=== PATIENT | female | born 1965 | race Caucasian/White ===

== ENCOUNTER 2018-12-04 13:28 | Emergency (ER) | payer BC, SELFPAY ==
[2018-12-04 12:42] VITALS: BMI 28.4
[2018-12-04 13:28] VITALS: BP 122/79; PULSE 70; RESP 16; TEMP 36.8; O2SAT 98; BMI 29.2
--- NOTE | 2018-12-04 13:59 | ED.VIS.GEN ---
History of Present Illness <RockyMaurilio - Last Filed: 12/04/18 14:07> Detail of Chief Complaint: motuh swelling Informant: Patient Onset: Days - 4 days Context: Gradual Onset Timing: Continuous Current Severity: Moderate Maximum Severity: Moderate Worsened by: nothing Relieved by: nothing Associated Symptoms: tongue feels swollen Narrative: 53-year-old female who presents to the emergency department today because she feels as if her mouth and tongue are swollen. Patient the other day bought some teeth whitening gel and used it on her top and bottom teeth and since then is felt like her gums are swollen and then she felt like her tongue was swollen this morning. She has not had any lip or facial swelling. She has not had any difficulty breathing or swallowing or opening closing her mouth. She has not had a rash been lightheaded or dizzy or had any shortness of breath. She has used this gel in the past multiple times. She has never had any difficulty with it. She does not have any allergies to any substances or medications that she knows of. Prior similar symptoms: No Recent Illness/Hospitalization: No <Angel Poole - Last Filed: 12/04/18 14:10> Chief Complaint: Other, Pain/Inj Past Medical History <HidalgoMaurilio - Last Filed: 12/04/18 14:07> Prior records reviewed: Yes Surgical History: noncontributory Lives: With Family Smoking Status: Never smoker Alcohol: None Drugs: None <Angel Poole - Last Filed: 12/04/18 14:10> - Allergies and Home Meds Allergies/Adverse Reactions: Allergies Penicillins [PCN] Allergy (Verified 12/04/18 13:30) Rash prochlorperazine edisylate [From Compazine] Allergy (Verified 12/04/18 13:30) Other prochlorperazine maleate [From Compazine] Allergy (Verified 12/04/18 13:30) Other promethazine HCl [From Phenergan] Allergy (Verified 12/04/18 13:30) Other Primary Care Physician: Cindy García MD [Primary Care Provider] - Review of Systems All systems negative except as indicated General: Denies: Chills, Fever <Angel Poole - Last Filed: 12/04/18 14:10> Physical Exam Vital Signs/Narrative: Vital Signs Temp Pulse Resp BP Pulse Ox 12/04/18 13:28 98.3 F 70 16 122/79 H 98 <Maurilio Hidalgo - Last Filed: 12/04/18 14:07> Vital Signs/Narrative: Vital Signs Temp Pulse Resp BP Pulse Ox 12/04/18 13:28 98.3 F 70 16 122/79 H 98 <Angel Poole - Last Filed: 12/04/18 14:10> Diagnostic/Tx/Re-eval - Medical Decision Making Patient with discomfort with her gums and potentially mild swelling of her tongue after using teeth whitening gel. No trouble breathing or swallowing. HEENT exam there is minimal if any swelling or tongue. There is no thrush. There is no abscess ulcers or canker sores. Gums appear to be minimally inflamed. This does not appear to be infectious. Her dentition otherwise in good shape. Neck nontender no lymphadenopathy. Lungs are clear. Heart regular rhythm. Otherwise exam unremarkable. Patient be started on [id number] Gly-Oxide 4-5 times a day. Stop the teeth whitening gel. <Maurilio Hidalgo - Last Filed: 12/04/18 14:07> ED Disposition <Maurilio Hidalgo - Last Filed: 12/04/18 14:07> <Angel Poole - Last Filed: 12/04/18 14:10> - Plan for ED Patient: Disposition: Home or Assisted Living Diagnosis: Stomatitis Instructions: ED Stomatitis Ch Referrals: Cindy García MD [Primary Care Provider] -
[2018-12-04 14:19] VITALS: BP 114/83; PULSE 72; RESP 18
== END 2018-12-04 14:33 | disposition home or self-care (01) ==
LOC: ED 14:32
PROVIDERS: Emergency Provider Physician Assistant Medical; Family Provider Family Medicine; PCP Family Medicine
DX: K12.1 Other forms of stomatitis (principal)
CPT/HCPCS: 99282

== ENCOUNTER 2019-10-24 21:48 | Observation (INO) | payer BC, SELFPAY ==
[2019-10-24 21:49] VITALS: BP 136/89; PULSE 77; RESP 18; O2SAT 100
[2019-10-24 21:50] VITALS: BP 136/89; PULSE 79; RESP 18; TEMP 36.5; O2SAT 99
--- NOTE | 2019-10-24 21:56 | EKG12_ITS ---
Test Reason : CP Blood Pressure : / mmHG Vent. Rate : 075 BPM Atrial Rate : 075 BPM P-R Int : 128 ms QRS Dur : 092 ms QT Int : 416 ms P-R-T Axes : 034 018 034 degrees QTc Int : 464 ms Normal sinus rhythm Normal ECG Confirmed by SPENCER BENTON ([id number]), television news video editor KITA CASEY ([id number]) on 10/26/2019 3:02:49 PM Referred By: Pierre Escudero Confirmed By:SPENCER BENTON
--- NOTE | 2019-10-24 22:05 | ED.RN ---
NO OLD EKGS IN MUSE
--- NOTE | 2019-10-24 22:10 | RAD_ITS ---
STUDY: X-RAY CHEST REASON FOR EXAM: Female, 54 years old. CHEST PAIN X 15 MINUTES TECHNIQUE: Single AP portable view of the chest. COMPARISON: None. FINDINGS: The lungs are clear and expanded. There is no demonstrated pleural abnormality. Normal size heart. Normal mediastinum and ayana. Normal visualized pulmonary arteries. Normal visualized aortic arch and descending thoracic aorta. Normal visualized thoracic spine. Normal visualized ribs, clavicles, and shoulders. There is no demonstrated abnormality of the visualized soft tissue structures of the upper abdomen. RAD/Chest 1 View (Portable) IMPRESSION: Normal x-ray examination of the chest. Electronically Signed: Champ Jennings MD at 22:27 EDT , Service support ,
[2019-10-24 22:15] LABS: Absolute Lymphocyte Count 3.91 X10^3/uL (0.83-4.51); Absolute Neutrophil Count 3.4 X10^3/uL (2.0-7.7); Basophil# 0.04 X10^3/uL; Basophil% 0.5 % (0-1); Eosinophil# 0.15 X10^3/uL; Eosinophils% 1.8 % (0-5); Hemoglobin 14.8 g/dL (12.0-15.0); Lymphocyte # 3.91 X10^3/ul (4.0); Lymphocyte % 47.1 % (19-41); Mean Corp Hgb Conc 32.9 g/dL (32-36); Mean Corpuscular Hgb 29.4 pg (27.0-32.0); Mean Corpuscular Volume 89.5 fL (81-99); Monocyte# 0.81 X10^3/uL; Monocyte% 9.7 % (0-10); NRBC Flagged by Analyzer 0 % (0-5); Neutrophil # 3.37 X10^3/uL (2.7-7.7); Neutrophil % 40.5 % (47-70); Platelet Count 404 K/mm3 (150-450); RBC Distribution Width CV 13.3 % (11.6-14.6); RBC Distribution Width SD 43.8 fl (35.1-43.9); Red Blood Count 5.03 M/mm3 (4.2-5.4); White Blood Count 8.3 K/mm3 (4.4-11.0)
[2019-10-24] MEDS: Aspirin 81 MG TAB.CHEW 324 MG PO (22:16)
[2019-10-24 22:31] LABS: Anion Gap 7 (5-15); BUN 15 mg/dL (7-18); BUN/Creat Ratio 17.9 RATIO (10-20); Calcium,Total 8.8 mg/dL (8.5-10.1); Chloride 111 mmol/L (98-107); Creatinine, Serum 0.84 mg/dL (0.55-1.02); EST Glomerular Filtration Rate 76 mL/min (>60); Est Glom Filt Rate - Afr Amer 92 mL/min (>60); Estimated Creatinine Clearance 75.32 ml/min; Glucose 73 mg/dL (74-106); Potassium 3.2 mmol/L (3.5-5.1); Sodium Level 140 mmol/L (136-145)
--- NOTE | 2019-10-24 22:46 | ED.VIS.GEN ---
History of Present Illness Chief Complaint: Chest Pain Informant: Patient Onset: Today Context: Gradual Onset Current Severity: Resolved Maximum Severity: Moderate Narrative: Patient presents with chest pain. She describes as a tight squeezing sensation of the midsternal region. Patient states that she was lying down watching television when pain hit her rather abruptly. Pain was bad enough she states she was laying on the kitchen floor. She did have some shortness of breath but related that to pain. She denies pain radiation to the jaw, arm, or back. drove her to the emergency room and since arrival here pain has slowly diminished to the point where she is currently pain-free. Patient does report a history of reflux disease but states this was nothing like her typical reflux. She does report having frequent palpitations over the last 6 months or so. She denies personal history of cardiac disease. - Past Medical History (1) GERD (gastroesophageal reflux disease) Status: Chronic Past Medical History - Allergies and Home Meds Allergies/Adverse Reactions: Allergies Penicillins [PCN] Allergy (Verified 10/24/19 21:49) Rash prochlorperazine edisylate [From Compazine] Allergy (Verified 10/24/19 21:49) Other prochlorperazine maleate [From Compazine] Allergy (Verified 10/24/19 21:49) Other promethazine HCl [From Phenergan] Allergy (Verified 10/24/19 21:49) Other Primary Care Physician: Cindy García MD [Primary Care Provider] - Prior records reviewed: Yes Surgical History: noncontributory Lives: Spouse/ Significant Other Smoking Status: Never smoker Review of Systems General: Denies: Chills, Fever Eyes: Denies: Visual changes - bilaterally ENT: Denies: Bilateral ear pain Cardiovascular: Reports: Chest pain, Palpitations Respiratory: Reports: Dyspnea. Denies: Cough Gastrointestinal: Denies: Abdominal pain, Nausea, Vomiting, Diarrhea Genitourinary: Denies: Dysuria Musculoskeletal: Denies: Swelling, Extremity Pain Neurological: Denies: Headache Psych: Denies: Depression Hematologic: Denies: Easy bruising, Easy bleeding Allergy: Denies: Uticaria Physical Exam Vital Signs/Narrative: Vital Signs Temp Pulse Resp BP Pulse Ox 10/24/19 21:50 97.7 F L 79 18 136/89 H 99 10/24/19 21:49 77 18 136/89 H 100 Inital Vital Signs reviewed: Yes General: Well nourished, Well developed Head: Normocephalic ENT: Moist mucous membranes Neck: Supple Cardiovascular: Regular rate, Regular rhythm Respiratory: No distress, CTA bilaterally, Chest nontender Abdomen: Soft, Nontender Extremities: Nontender Skin: Normal color, No rash Neurological: Alert, Oriented x3 Psychological: Normal affect Diagnostic/Tx/Re-eval Impressions Chest X-Ray 10/24/19 22:10 IMPRESSION: Normal x-ray examination of the chest. Electronically Signed: Champ Jennings MD at 22:27 EDT , Service support , 10/24/19 22:10 Chest 1 View (Portable) [RAD] Stat Laboratory Results 10/24/19 10/24/19 22:00 22:00 WBC 8.3 RBC 5.03 Hgb 14.8 Hct 45.0 MCV 89.5 MCH 29.4 MCHC 32.9 RDW Std Deviation 43.8 RDW Coeff of Anjana 13.3 Plt Count 404 MPV 9.0 Immature Gran % (Auto) 0.400 Neut % (Auto) 40.5 L Lymph % (Auto) 47.1 H [place] % (Auto) 9.7 Eos % (Auto) 1.8 Baso % (Auto) 0.5 Absolute Neuts (auto) 3.4 Absolute Lymphs (auto) 3.91 Nucleated RBC % 0 Sodium 140 Potassium 3.2 L Chloride 111 H Carbon Dioxide 22.0 Anion Gap 7 BUN 15 Creatinine 0.84 Estim Creat Clear Calc 75.32 Est GFR (MDRD) Af Amer 92 Est GFR (MDRD) Non-Af 76 BUN/Creatinine Ratio 17.9 Glucose 73 L Calcium 8.8 Troponin I < 0.015 - EKG Initial EKG Interpretation: Sinus Rhythm - Sinus at 75 with no acute ischemia. - Medical Decision Making Patient was given aspirin on arrival here. The time of my evaluation she reports being pain-free. Patient does report rather significant pain and states it was nothing like her prior reflux disease. Initial blood work is unremarkable, however was drawn probably within 1 hour of onset of symptoms. At this time I will speak with hospitalist regarding admission for cycling of cardiac enzymes. ED Disposition - Plan for ED Patient: Disposition: Acute Care Hospital [facility] Diagnosis: Chest pain Referrals: Cindy García MD [Primary Care Provider] -
[2019-10-24 22:59] VITALS: BP 115/83; PULSE 76; RESP 16; O2SAT 95
[2019-10-24 23:06] VITALS: BP 110/73; PULSE 77; RESP 19; TEMP 36.5; O2SAT 95
[2019-10-24 23:44] VITALS: BMI 29.9
[2019-10-24 23:45] VITALS: BP 112/63; PULSE 71; RESP 16; TEMP 36.5; O2SAT 96
--- NOTE | 2019-10-24 23:49 | HP.PCM_ITS ---
Problem List (1) Chest pain Status: Acute Qualifiers: Chest pain type: precordial pain Qualified Code(s): R07.2 - Precordial pain History of Present Illness Date of Admission: 10/24/19 Chief Complaint: Chest pain The patient is a 54 year old F who was seen in the emergency room at [facility] with a chief complaint of precordial chest pain which started approximately 9:45 PM tonight, she described the chest pain as being tight and squeezing in nature, it did not radiate into her neck back or arm. Patient did have some pain across her upper abdomen, she denies any diaphoresis or shortness of breath. Patient states that the chest discomfort occurred when she was lying on the couch after eating some tacos chips and drinking a shin. The chest discomfort lasted approximately half an hour and resolved. Work-up in the emergency room included troponin which was unremarkable, chest x-ray showed no abnormality, EKG showed normal sinus rhythm without evidence of ischemia. Potassium was slightly low at 3.2. Patient will be placed in observation status for chest pain, cardiac enzymes will be cycled and if these remain negative patient will undergo an exercise nuclear stress test tomorrow. I explained her course of medical treatment in the hospital and explained that if her stress test was positive she would likely undergo a cardiac catheterization. Past Medical History Past Medical History (Chronic Problems): Chronic Problems (Last Updated 12/04/18 @ 12:53 by Crystal Verma) GERD (gastroesophageal reflux disease) (Chronic) Medical History: Medical History (Last Updated 12/04/18 @ 12:53 by Crystal Verma) Hemorrhoids K64.9 history of trigger thumb surgery Allergies Penicillins [PCN] Allergy (Verified 10/24/19 21:49) Rash prochlorperazine edisylate [From Compazine] Allergy (Verified 10/24/19 21:49) Other prochlorperazine maleate [From Compazine] Allergy (Verified 10/24/19 21:49) Other promethazine HCl [From Phenergan] Allergy (Verified 10/24/19 21:49) Other Home Medications: Ambulatory Orders Medication Instructions Recorded fluoxetine 10 mg tablet 10 mg PO DAILY 12/04/18 Surgical History: Surgical History (Last Updated 12/04/18 @ 12:53 by Crystal Verma) History of Z98.891 History of cholecystectomy Z90.49 Surgical History: cholecystectomy, - - , dental procedure Psychiatric History: No pertinent psych hx MEDICATION COORDINATOR History: No pertinent MEDICATION COORDINATOR history Lives: Spouse/ Significant Other Smoking Status: Never smoker Tobacco Use: Non-smoker Alcohol: Occasional Drugs: None - *Family History Maternal History Items: No pertinent history Paternal History Items: No pertinent history Review of Systems Constitutional: Denies: Anorexia, Chills, Fever, Night Sweats, Malaise, Weakness, Weight Change, Fatigue Eyes: Denies: Cataracts, Conjunctivae Inflammation, Double vision, Drainage HEENT: Denies: Difficulty Swallowing, Dysphasia, Ear Pain, Eye Pain, Hearing Changes, Nasal bleeding, Nasal Congestion, Post Nasal Drip Cardiovascular: Reports: Chest Pain, Chest Pressure, Chest Tightness. Denies: Claudication, Edema, Heaviness, Light Headedness, Orthopnea, Palpitations, Paroxysmal Noc. Dyspnea Respiratory: Denies: Cough, Hemoptysis, Pleuritic Pain, Shortness of Breath, Shortness of breath at rest, Shortness of breath upon exertion, Sputum production, Wheezing Gastrointestinal: Reports: Abdominal Pain - Patient complained of pain across her abdomen and while having chest discomfort. Denies: Constipation, Diarrhea, Hematemesis, Hematochezia, Nausea, Melena, Vomiting Genitourinary: Denies: Dysuria, Frequency, Hematuria, Hesitancy, Incontinence, Nocturia, Retention, Urgency Gynecological: Denies: Breast symptoms Musculoskeletal: Denies: Back Pain, Foot Pain, Hand Pain, Joint Pain, Joint stiffness, Joint swelling, Joint Tenderness, Leg Pain Skin: Denies: Dryness, Pruritis, Rash Neurological: Denies: Blurred vision, Double vision, Slurred speech, Difficulty swallowing, Focal weakness, Headaches, Incoordination, Numbness, Tingling Psychiatric: Denies: Anxiety, Depression, Homicidal Ideations, Suicidal Ideations Endocrine: Denies: Change in Body Habitus, Heat/ Cold Intolerance, Polydipsia, Polyuria, Hx of Irradiation Hematologic/ Lymphatic: Denies: Adenopathy, Anemia, Easy Bruising, Easy Bleeding, Petechiae, Purpura VTE Information - Inpt Only VTE Present on Admission: No VTE Mechan Device Prophylaxis: None VTE Pharm Prophylaxis ordered?: No Reason prophylaxis not ordered:: Treatment Not Indicated Patient Problems: Active and Suspected Problems (Last Updated 12/04/18 @ 12:53 by Crystal Verma) Chest pain (Acute) - Physical Exam Vitals/I&O's: Vital Signs Temp Pulse Resp BP Pulse Ox 97.7 F L 71 16 112/63 96 10/24/19 23:45 10/24/19 23:45 10/24/19 23:45 10/24/19 23:45 10/24/19 23:45 Oxygen Delivery Method Room Air Weight: 87 kg Body Mass Index (BMI) 30.0 General: Alert, Oriented x3, Cooperative, No apparent distress, Well developed, Well nourished HEENT: Atraumatic, PERRLA, EOMI, Normocephalic Oral: Moist Mucosa Neck: Supple, No JVD, Negative Carotid Bruits, No Nuchal Rigidity, Trachea Midline, Thyroid Normal Size and Texture Lungs: Clear to auscultation, Normal air movement, No rhonchi, No wheeze, No rales Cardiovascular: Regular rate, Regular Rhythm, Normal S1, Normal S2, No murmurs, PMI Normal, No rub noted, No Gallop Abdomen: Bowel Sounds Present, Soft, Non Tender, Non-Distended, No hernias noted Extremities: No clubbing, No cyanosis, No edema, Capillary Refill Less than 3 Seconds Skin: No rashes, No breakdown Musculoskeletal: No Tenderness to Palpation of Joints or Extremities Neurological: Cranial nerves II-XII grossly intact, Neuro grossly intact, Sensory exam intact to light touch and pain, Coordination normal Psych/Mental Status: Normal Affect, Appropriate, Alert and oriented to time, place, person, mood and affect Laboratory Results 10/24/19 22:00: WBC 8.3, RBC 5.03, Hgb 14.8, Hct 45.0, MCV 89.5, MCH 29.4, MCHC 32.9, RDW Std Deviation 43.8, RDW Coeff of Anjana 13.3, Plt Count 404, MPV 9.0, Immature Gran % (Auto) 0.400, Neut % (Auto) 40.5 L, Lymph % (Auto) 47.1 H, Real % (Auto) 9.7, Eos % (Auto) 1.8, Baso % (Auto) 0.5, Absolute Neuts (auto) 3.4, Absolute Lymphs (auto) 3.91, Nucleated RBC % 0 10/24/19 22:00: Sodium 140, Potassium 3.2 L, Chloride 111 H, Carbon Dioxide 22.0, Anion Gap 7, BUN 15, Creatinine 0.84, Estim Creat Clear Calc 75.32, Est GFR (MDRD) Af Amer 92, Est GFR (MDRD) Non-Af 76, BUN/Creatinine Ratio 17.9, Glucose 73 L, Calcium 8.8, Troponin I < 0.015 Current Medications Sodium Chloride () 250 mls @ 15 mls/hr IV .[id number] PRN PRN Reason: Saline Flush Sodium Chloride () 250 mls @ 15 mls/hr IV .[id number] PRN PRN Reason: Additional IVPB Infusion Sodium Chloride () 10 - 40 ml IV UD PRN PRN Reason: SALINE FLUSH Assessment/Plan All Active Problems (Last Updated 12/04/18 @ 12:53 by Crystal Verma) Chest pain (Acute) #1 chest pain-etiology unclear, patient will be placed in observation status on PCU, she will be monitored, cardiac enzymes will be cycled if these remain negative patient will undergo an exercise stress test tomorrow #2 hypokalemia-etiology unclear, oral potassium will be given OBSV E&M: [id number] Initial observation care L3
[2019-10-24 23:52] VITALS: PULSE 88
--- NOTE | 2019-10-25 00:45 | EKG12_ITS ---
Test Reason : ADM EKG Blood Pressure : / mmHG Vent. Rate : 070 BPM Atrial Rate : 070 BPM P-R Int : 122 ms QRS Dur : 092 ms QT Int : 428 ms P-R-T Axes : 042 047 034 degrees QTc Int : 462 ms Normal sinus rhythm Normal ECG No previous ECGs available Confirmed by SPENCER BENTON ([id number]), editor book KITA CASEY ([id number]) on 10/26/2019 3:17:42 PM Referred By: Pierre Escudero Confirmed By:SPENCER BENTON
[2019-10-25 02:59] VITALS: PULSE 80
[2019-10-25 05:45] VITALS: BP 107/67; PULSE 74; RESP 16; TEMP 36.6; O2SAT 96
[2019-10-25] MEDS: 0.9% Saline Lock 10 ML Syringe IV (05:53)
--- NOTE | 2019-10-25 05:55 | EKG12_ITS ---
Test Reason : AM EKG Blood Pressure : / mmHG Vent. Rate : 072 BPM Atrial Rate : 072 BPM P-R Int : 124 ms QRS Dur : 088 ms QT Int : 420 ms P-R-T Axes : 039 033 034 degrees QTc Int : 459 ms Normal sinus rhythm Normal ECG When compared with ECG of 25-OCT-2019 00:27, MANUAL COMPARISON REQUIRED, DATA IS UNCONFIRMED Confirmed by SPENCER BENTON ([id number]), medical editor KITA CASEY ([id number]) on 10/26/2019 3:17:52 PM Referred By: Pierre Escudero Confirmed By:SPENCER BENTON
[2019-10-25 07:43] VITALS: PULSE 83
[2019-10-25 07:50] LABS: Anion Gap 7 (5-15); BUN 18 mg/dL (7-18); BUN/Creat Ratio 20.7 RATIO (10-20); Calcium,Total 8.6 mg/dL (8.5-10.1); Chloride 110 mmol/L (98-107); Creatinine, Serum 0.87 mg/dL (0.55-1.02); EST Glomerular Filtration Rate 73 mL/min (>60); Est Glom Filt Rate - Afr Amer 88 mL/min (>60); Estimated Creatinine Clearance 72.72 ml/min; Glucose 102 mg/dL (74-106); Potassium 4.1 mmol/L (3.5-5.1); Sodium Level 141 mmol/L (136-145)
[2019-10-25 08:23] VITALS: BP 121/76; PULSE 75; RESP 18; TEMP 36.7; O2SAT 96
--- NOTE | 2019-10-25 12:58 | STRESSREP_ITS ---
Stress Test Report Exercise myocardial perfusion stress test. 54-year-old lady with a history of chest pain. Stress protocol: Resting EKG demonstrates normal sinus rhythm with a rate of 71 bpm normal intervals are noted resting blood pressures 110/80 mmHg. The patient exercised according to regular Brain protocol for a total duration of 7 minutes. The m aximum heart rate attained was 157 bpm which was 94% of maximum. Heart rate the maximum workload was 8.5 metabolic equivalents. At rest there were no ST or T wave changes noted to suggest ischemia at peak exercise upsloping ST changes only were noted within.did not note any ischemia. No clinical angina was noted. The test was terminated due to leg fatigue, dyspnea and target heart rate being achieved. Myocardial perfusion protocol. 12.0 mCi of technetium 99m sestamibi was injected at rest. The patient exercised according to regular Brain protocol for a total duration of 7 minutes at peak exercise 36.0 mCi of technetium 99m sestamibi was injected stress images were obtained stress and rest images were reconstructed in comparing the short axis vertical long horizontal long axis. Gated images were also obtained per Perfusion SPECT analysis: Review of the stress images demonstrate normal uptake of tracer noted in all areas of the myocardium. The resting images similar demonstrate normal uptake of tracer noted in all areas of the myocardium. No areas of reversibility are noted suggest ischemia no previous infarct is noted. Gated SPECT analysis: The gated ejection fraction is noted to be 74%. Conclusion: Normal exercise myocardial perfusion stress test at a moderate workload. Preserved ejection fraction.
--- NOTE | 2019-10-25 13:51 | DS.PCM_ITS ---
<Noah Messer - Last Filed: 10/25/19 13:51> Discharge Date and Diagnosis - Problem List Patient Problems: Active and Suspected Problems (Last Updated 12/04/18 @ 12:53 by Crystal Verma) Chest pain (Acute) Date of Admission: 10/24/19 Date of Discharge: 10/25/19 - Primary Discharge Diagnosis Active and Suspected Problems (Last Updated 12/04/18 @ 12:53 by Crystal Verma) Chest pain (Acute) - musculoskeletal Anx/depression - Secondary Discharge Diagnosis Chronic Problems (Last Updated 12/04/18 @ 12:53 by Crystal Verma) GERD (gastroesophageal reflux disease) (Chronic) Hospital Course and Treatment Imaging Results: 10/25/19 05:55 Nuclear Stress Test - Treadmil [NM] AM (NON MEDS) Conclusion: Normal exercise myocardial perfusion stress test at a moderate workload. Preserved ejection fraction. RAD/Chest 1 View (Portable) IMPRESSION: Normal x-ray examination of the chest. Operations: None Procedures: Stress test Summary of Care Provided: Hospital Course: The patient is a 54 year old F with pmhx of anx/depression who presented to the ER with c/o chest pain. This began at about 2145 the day of presentation. It was a left sided squeezing pain, nonradiating with some epigastric pain as well. It occurred while laying on the cough after eating tacos and drinking a shin. It spontaneously resolved 1/2 hour later. In the ER EKG was negative, CXR was negative, trop was negative. She was admitted for chest pain workup. No events on tele overnight. Troponin negative x3. Treadmill stress the following day was negative. She will need to follow up with her PCP in 1-2 weeks. She was dischar [facility] home in stable condition. This patient was seen by Noah Messer PA-C under the supervision of Dr. El. [] Patient Problems: Active and Suspected Problems (Last Updated 12/04/18 @ 12:53 by Crystal Verma) Chest pain (Acute) - Physical Exam Vitals/I&O's: Vital Signs Temp Pulse Resp BP Pulse Ox 98.0 F 75 18 121/76 H 96 10/25/19 08:23 10/25/19 08:23 10/25/19 08:23 10/25/19 08:23 10/25/19 08:23 Oxygen Delivery Method Room Air Weight: 191 lb 5.78 oz Body Mass Index (BMI) 29.9 Intake and Output for Last 24 Hours 10/23/19 10/24/19 10/25/19 23:59 23:59 23:59 Intake Total 100 / 100 300 / 300 Balance 100 / 100 300 / 300 General: Alert, Oriented x3, Cooperative HEENT: Atraumatic, PERRLA, EOMI, Normocephalic Neck: Supple, No JVD, Negative Carotid Bruits Lungs: Clear to auscultation, Normal air movement Cardiovascular: Regular rate, No murmurs Abdomen: Bowel Sounds Present, Soft, Non Tender Extremities: No edema, Capillary Refill Less than 3 Seconds Skin: No rashes, No breakdown Musculoskeletal: No Tenderness to Palpation of Joints or Extremities Neurological: Cranial nerves II-XII grossly intact Psych/Mental Status: Normal Affect, Appropriate, Alert and oriented to time, place, person, mood and affect Laboratory Results 10/24/19 22:00: WBC 8.3, RBC 5.03, Hgb 14.8, Hct 45.0, MCV 89.5, MCH 29.4, MCHC 32.9, RDW Std Deviation 43.8, RDW Coeff of Anjana 13.3, Plt Count 404, MPV 9.0, Immature Gran % (Auto) 0.400, Neut % (Auto) 40.5 L, Lymph % (Auto) 47.1 H, Johnston % (Auto) 9.7, Eos % (Auto) 1.8, Baso % (Auto) 0.5, Absolute Neuts (auto) 3.4, Absolute Lymphs (auto) 3.91, Nucleated RBC % 0 10/24/19 22:00: Sodium 140, Potassium 3.2 L, Chloride 111 H, Carbon Dioxide 22.0, Anion Gap 7, BUN 15, Creatinine 0.84, Estim Creat Clear Calc 75.32, Est GFR (MDRD) Af Amer 92, Est GFR (MDRD) Non-Af 76, BUN/Creatinine Ratio 17.9, Glucose 73 L, Calcium 8.8, Troponin I < 0.015 10/25/19 00:38: Troponin I < 0.015 10/25/19 04:22: Troponin I < 0.015 10/25/19 04:22: Sodium 141, Potassium 4.1, Chloride 110 H, Carbon Dioxide 24.0, Anion Gap 7, BUN 18, Creatinine 0.87, Estim Creat Clear Calc 72.72, Est GFR (MDRD) Af Amer 88, Est GFR (MDRD) Non-Af 73, BUN/Creatinine Ratio 20.7 H, Glucose 102, Calcium 8.6 Current Medications Sodium Chloride () 250 mls @ 15 mls/hr IV .[id number] PRN PRN Reason: Saline Flush Sodium Chloride () 250 mls @ 15 mls/hr IV .[id number] PRN PRN Reason: Additional IVPB Infusion Morphine Sulfate () 2 mg IV Q3H PRN PRN PRN Reason: Pain Score 6-10/10 Ondansetron HCl (Zofran) 4 mg IV Q8H PRN PRN PRN Reason: NAUSEA/VOMITING Sodium Chloride () 10 - 40 ml IV UD PRN PRN Reason: SALINE FLUSH Last Admin: 10/25/19 05:53 Dose: 10 ml Documented by: Temazepam (Restoril) 15 mg PO QHS PRN PRN PRN Reason: INSOMNIA Discharge Diet: No Restrictions Discharge Activity: Return to Normal Activity Home Medications: Medications to take at Discharge fluoxetine 10 mg tablet 10 mg PO DAILY 12/04/18 Primary Care Physician: Cindy García MD [Primary Care Provider] - Please follow up with your Primary Care Physician in: 1-2 weeks Disposition: Home Minutes spent on discharge:: 35 Patient Condition:: Stable Medical Necessity - Tobacco Use Smoking Status: Never smoker Tobacco Use: Non-smoker Meaningful Use Info Meaningful Use Diagnoses (Choose all that apply): None applicable <Radha El - Last Filed: 10/25/19 14:09> Discharge Date and Diagnosis - Primary Discharge Diagnosis Active and Suspected Problems (Last Updated 12/04/18 @ 12:53 by Crystal Verma) Chest pain (Acute) - Secondary Discharge Diagnosis Chronic Problems (Last Updated 12/04/18 @ 12:53 by Crystal Verma) GERD (gastroesophageal reflux disease) (Chronic) Hospital Course and Treatment Imaging Results: 10/25/19 05:55 Nuclear Stress Test - Treadmil [NM] AM (NON MEDS) Summary of Care Provided: Patient seen by Noah Messer PA-C under my supervision The patient is a 54 year old F admitted through the ED with a complaint of chest pain. Was a left-sided squeezing chest pain with no aggravating or relieving factors. Troponins x3 were negative and EKG showed no acute ST changes. Chest x-ray showed no acute cardiopulmonary process. She was admitted to be managed for chest pain to rule out ACS. He had a treadmill stress test on 10/25/2019 which was negative for any evidence of ischemia. Patient remained stable and chest pain did not recur. She was discharged home on 10/25/2019 and is to follow- up with her primary care doctor within 1 to 2 weeks. Patient seen and examined prior to discharge. She had no complaints. Review of symptoms otherwise negative. Labs and vitals reviewed. Home medication reviewed and reconciled. o/e: Vital Signs Temp Pulse Resp BP Pulse Ox 98.0 F 75 18 121/76 H 96 10/25/19 08:23 10/25/19 08:23 10/25/19 08:23 10/25/19 08:23 10/25/19 08:23 [] General: Alert, Oriented x3, Cooperative, No apparent distress HEENT: Atraumatic, PERRLA, EOMI, Normocephalic Oral: Moist Mucosa Neck: Supple, No JVD, Negative Carotid Bruits, Lungs: Clear to auscultation, Normal air movement, No rhonchi, No wheeze, No rales Cardiovascular: Regular rate, Regular Rhythm, Normal S1, Normal S2, No murmurs, Abdomen: Bowel Sounds Present, Soft, Non Tender, Non-Distended, No hernias noted Extremities: No clubbing, No cyanosis, No edema, Capillary Refill Less than 3 Se conds Skin: No rashes, No breakdown Musculoskeletal: No Tenderness to Palpation of Joints or Extremities Neurological: Cranial nerves II-XII grossly intact, Neuro grossly intact Psych/Mental Status: Normal Affect, Appropriate, Alert and oriented to time, place, person, mood and affect Plan is for discharge home today. Rest as per Noah Messer PA-C's notes which I have reviewed and endorsed. - Physical Exam Vitals/I&O's: Vital Signs Temp Pulse Resp BP Pulse Ox 98.0 F 75 18 121/76 H 96 10/25/19 08:23 10/25/19 08:23 10/25/19 08:23 10/25/19 08:23 10/25/19 08:23 Oxygen Delivery Method Room Air Weight: 191 lb 5.78 oz Body Mass Index (BMI) 29.9 Intake and Output for Last 24 Hours 10/23/19 10/24/19 10/25/19 23:59 23:59 23:59 Intake Total 100 / 100 300 / 300 Balance 100 / 100 300 / 300 Laboratory Results 10/24/19 22:00: WBC 8.3, RBC 5.03, Hgb 14.8, Hct 45.0, MCV 89.5, MCH 29.4, MCHC 32.9, RDW Std Deviation 43.8, RDW Coeff of Anjana 13.3, Plt Count 404, MPV 9.0, Immature Gran % (Auto) 0.400, Neut % (Auto) 40.5 L, Lymph % (Auto) 47.1 H, Johnston % (Auto) 9.7, Eos % (Auto) 1.8, Baso % (Auto) 0.5, Absolute Neuts (auto) 3.4, Absolute Lymphs (auto) 3.91, Nucleated RBC % 0 10/24/19 22:00: Sodium 140, Potassium 3.2 L, Chloride 111 H, Carbon Dioxide 22.0, Anion Gap 7, BUN 15, Creatinine 0.84, Estim Creat Clear Calc 75.32, Est GFR (MDRD) Af Amer 92, Est GFR (MDRD) Non-Af 76, BUN/Creatinine Ratio 17.9, Glucose 73 L, Calcium 8.8, Troponin I < 0.015 10/25/19 00:38: Troponin I < 0.015 10/25/19 04:22: Troponin I < 0.015 10/25/19 04:22: Sodium 141, Potassium 4.1, Chloride 110 H, Carbon Dioxide 24.0, Anion Gap 7, BUN 18, Creatinine 0.87, Estim Creat Clear Calc 72.72, Est GFR (MDRD) Af Amer 88, Est GFR (MDRD) Non-Af 73, BUN/Creatinine Ratio 20.7 H, Glucose 102, Calcium 8.6 Current Medications Sodium Chloride () 250 mls @ 15 mls/hr IV .[id number] PRN PRN Reason: Saline Flush Sodium Chloride () 250 mls @ 15 mls/hr IV .[id number] PRN PRN Reason: Additional IVPB Infusion Morphine Sulfate () 2 mg IV Q3H PRN PRN PRN Reason: Pain Score 6-10/10 Ondansetron HCl (Zofran) 4 mg IV Q8H PRN PRN PRN Reason: NAUSEA/VOMITING Sodium Chloride () 10 - 40 ml IV UD PRN PRN Reason: SALINE FLUSH Last Admin: 10/25/19 05:53 Dose: 10 ml Documented by: Temazepam (Restoril) 15 mg PO QHS PRN PRN PRN Reason: INSOMNIA Inpatient E&M: [id number] Disch Hosp
--- NOTE | 2019-10-25 13:51 | DCINST_ITS ---
- Discharge Diagnoses Current Active Problems: Current Active and Chronic Problems (Last Updated 12/04/18 @ 12:53 by Crystal Verma) GERD (gastroesophageal reflux disease) (Chronic) Chest pain (Acute) You will use the following diet at home:: No restrictions Your food should be the consistency of: Regular Your liquids should be the consistency of: Regular/Thin Discharge Activity: Return to Normal Activity Allergies/Adverse Reactions: Allergies Penicillins [PCN] Allergy (Verified 10/24/19 21:49) Rash prochlorperazine edisylate [From Compazine] Allergy (Verified 10/24/19 21:49) Other prochlorperazine maleate [From Compazine] Allergy (Verified 10/24/19 21:49) Other promethazine HCl [From Phenergan] Allergy (Verified 10/24/19 21:49) Other Medications to take at Discharge fluoxetine 10 mg tablet 10 mg PO DAILY 12/04/18 Primary Care Physician: Cindy García MD [Primary Care Provider] - Please follow up with your Primary Care Physician in: 1-2 weeks Test Results: Test results from this visit will be discussed in further detail at your follow- up appointment, if applicable. Proposed Discharge Date: 10/25/19
== END 2019-10-25 13:51 | disposition home or self-care (01) ==
LOC: ED 22:49 → PCU 10-25 00:43
PROVIDERS: Emergency Medicine; Admitting Provider Internal Medicine; Emergency Provider Emergency Medicine; PCP Family Medicine; Referring Provider Internal Medicine; Visit Provider Student in an Organized Health Care Education/Training Program
DX: R07.89 Other chest pain (principal); K21.9 Gastro-esophageal reflux disease without esophagitis; Z79.899 Other long term (current) drug therapy; E87.6 Hypokalemia; F41.9 Anxiety disorder, unspecified; F32.9 Major depressive disorder, single episode, unspecified
CPT/HCPCS: 36415; 71045; 78452; 80048; 84484; 85025; 93005; 93017; 99218; 99285; A9500; A4216; G0378

== ENCOUNTER → 2019-12-11 12:42 | Outpatient (CLI) | payer BC, SELFPAY ==
[2019-11-23 13:29] VITALS: BMI 28.8
--- NOTE | 2019-12-11 12:45 | ECHOD_ITS ---
Reason For Study: Palps Procedure This was a 2D Doppler, Color Flow transthoracic echocardiogram. The exam was of adequate technical quality. Exam performed in department. Left Ventricle Normal LV size. Left ventricular systolic function is normal. The estimated ejection fraction is 65 %. Transmitral doppler flow suggestive of impaired relaxation of left ventricle. No regional wall motion abnormalities noted. Right Ventricle Normal RV size. Normal systolic function. Atria Normal left atrium. Normal right atrium. No doppler evidence for ASD. Mitral Valve There is no mitral annular calcification. Normal mitral valve. Trivial mitral valve insufficiency. Tricuspid Valve Normal tricuspid valve. Trivial tricuspid valve insufficiency. Right ventricular systolic pressure estimated to be 22 mmHg. Aortic Valve 2D echocardiographic images obtained appear c/w with a bicuspid aortic valve with mild focal thickening of a fused raphae. Mild (1+) aortic valve insufficiency. Pulmonic Valve The pulmonic valve is not well visualized. Great Vessels Mildly dilated aortic root. Pericardium/Pleural No pericardial effusion. MMode/2D Measurements & Calculations LVIDd: 4.1 cm IVSd: 0.77 cm LVOT diam: 2.2 cm LVIDs: 2.4 cm LVPWd: 0.87 cm LVOT area: 3.7 cm2 RVDd: 3.2 cm FS: 42.0 % Ao root diam: 4.0 cm LAV(MOD-bp): 33.8 ml LA A4 area: 14.9 cm2 LAV(MOD-bp) Indexed: 17.3 ml/m2 LAV(MOD-sp2): 32.2 ml LAV(MOD-sp4): 35.3 ml LA dimension(2D): 3.2 cm RA A4 area: 15.4 cm2 Doppler Measurements & Calculations MV E max eddie: 78.2 cm/sec Lat Peak E' Eddie: 9.8 cm/sec Med Peak E' Eddie: 6.7 cm/sec MV A max eddie: 91.3 cm/sec E/E' lat: 8.0 E/E' med: 11.7 MV E/A: 0.86 Ao V2 max: 154.7 cm/sec AI max eddie: 350.0 cm/sec LV V1 max: 118.6 cm/sec Ao max P.6 mmHg AI max P.1 mmHg LV V1 max P.6 mmHg Ao V2 mean: 104.5 cm/sec AI dec slope: 142.6 cm/sec2 LV V1 mean P.9 mmHg Ao mean P.8 mmHg AI P1/2t: 719.0 msec LV V1 mean: 80.9 cm/sec Ao V2 VTI: 31.2 cm LV V1 VTI: 25.1 cm NORA(I,D): 3.0 cm2 NORA(V,D): 2.8 cm2 SV(LVOT): 93.1 ml PA V2 max: 72.4 cm/sec TR max eddie: 215.1 cm/sec TR max P.5 mmHg Interpretation Summary Left ventricular systolic function is normal. The estimated ejection fraction is 65 %. Trivial mitral valve insufficiency. Trivial tricuspid valve insufficiency. 2D echocardiographic images obtained appear c/w with a bicuspid aortic valve with mild focal thickening of a fused raphae. Mild (1+) aortic valve insufficiency. Mildly dilated aortic root. Right ventricular systolic pressure estimated to be 22 mmHg. Transmitral doppler flow suggestive of impaired relaxation of left ventricle Ordering Physician: Gabino Bob Referring Physician: Cindy García M.D. Performed By: Rachelle Pedraza RDCS
== END ==
PROVIDERS: PCP Family Medicine; Referring Provider Internal Medicine Cardiovascular Disease; Visit Provider Internal Medicine Cardiovascular Disease
DX: R07.2 Precordial pain (principal); R01.1 Cardiac murmur, unspecified; R00.2 Palpitations
CPT/HCPCS: 93225; 93226; 93306

== ENCOUNTER → 2019-12-19 | Outpatient (CLI) | payer BC, SELFPAY ==
[2019-11-23 13:29] VITALS: BMI 28.8
--- NOTE | 2019-12-19 14:51 | CT_ITS ---
STUDY: CT CHEST WITH CONTRAST REASON FOR EXAM: Female, 54 years old. DILATED AORTIC ROOT found on ultrasound. No surgical or medical hx RADIATION DOSAGE (If Supplied By Facility): CTDIvol = ( 14.00 ) mGy, DLP = ( 417.80 ) mGycm TECHNIQUE: Transaxial imaging was performed following intravenous administration of IV 100mL Isovue-300. Multiplanar coronal and sagittal images were reformatted. Individualized dose optimization techniques were used for this CT. COMPARISON: Chest x-ray October 24, 2019. FINDINGS: The lungs are normal. There is no demonstrated pleural abnormality. Normal heart and pericardium. Normal mediastinum. Normal hilar regions. Normal enhanced pulmonary arteries. There is aneurysmal dilatation of the ascending aorta measuring 4.0 cm. The aortic arch and descending aorta measure 2.5 cm. There is no focal dissection. Normal osseous structures. There is no demonstrated abnormality of the visualized upper abdomen. There is 2.0 cm peripherally enhancing mass in the posterior segment right lobe liver consistent with hemangioma CT/Chest WITH Contrast IMPRESSION: Aneurysmal dilatation of the ascending aorta. No dissection. Electronically Signed: Don Walton MD at 16:27 EDT , Service support ,
== END | disposition home or self-care (01) ==
LOC: CT 14:51
PROVIDERS: PCP Family Medicine; Referring Provider Internal Medicine Cardiovascular Disease; Visit Provider Internal Medicine Cardiovascular Disease
DX: I77.810 Thoracic aortic ectasia (principal)
CPT/HCPCS: 71260; Q9967; A4216

== ENCOUNTER → 2020-02-07 | Outpatient (CLI) | payer BC, SELFPAY ==
[2020-02-02 08:25] VITALS: BMI 29.6
--- NOTE | 2020-02-07 16:00 | RAD_ITS ---
STUDY: X-RAY - LEFT FOOT CLINICAL: Female, 54 years old. Hit foot against table leg. Pain and bruising of the fourth toe and overlying the lateral metatarsals. TECHNIQUE: 3 view(s) of the foot. COMPARISON: None. FINDINGS: Normal talus, calcaneus, and tarsal bones. Normal visualized subtalar, talonavicular, calcaneocuboid, tarsal and tarsometatarsal articulations. Normal metatarsi. Normal metatarsophalangeal joint of the great toe. Normal tibial and fibular sesamoid bones. Normal interphalangeal joint of the great toe. Normal phalanges of the great toe. Normal second through fifth metatarsophalangeal joints. Normal interphalangeal joints. There is a minimally displaced fracture shaft of the fourth proximal phalanx. Otherwise normal phalanges of the lesser toes. There is mild soft tissue swelling over the lateral forefoot. RAD/Foot min 3 Views IMPRESSION: Mildly displaced fracture of the fourth proximal phalanx. Electronically Signed: Spencer Littlejohn DO at 22:58 EDT Tel [phone], Service support ,
[2020-02-07 19:04] LABS: ALB/GLOB Ratio 0.9 RATIO (0.9-2.4); AST(SGOT) 20 U/L (15-37); Alanine Aminotransfer ALT/SGPT 32 U/L (13-56); Albumin, Serum 3.8 g/dL (3.2-5.0); Alkaline Phosphatase 71 U/L (45-117); Anion Gap 5 (5-15); BUN 14 mg/dL (7-18); Calcium,Total 9.2 mg/dL (8.5-10.1); Chloride 106 mmol/L (98-107); Creatinine, Serum 0.78 mg/dL (0.55-1.02); EST Glomerular Filtration Rate 82 mL/min (>60); Est Glom Filt Rate - Afr Amer 100 mL/min (>60); Globulin 4.3 g/dL (2.2-4.2); Glucose 78 mg/dL (74-106); Protein, Total 8.1 g/dL (6.4-8.2); Sodium Level 137 mmol/L (136-145); Thyroid Stim Hormone (TSH) 1.22 uIU/mL (0.358-3.74)
== END | disposition home or self-care (01) ==
LOC: MTRAD 15:59
PROVIDERS: PCP Family Medicine; Referring Provider Family Medicine; Visit Provider Family Medicine
DX: M79.672 Pain in left foot (principal); F32.9 Major depressive disorder, single episode, unspecified
CPT/HCPCS: 36415; 73630; 80053; 84443

== ENCOUNTER → 2020-06-06 11:56 | Outpatient (CLI) | payer BC, SELFPAY ==
[2020-06-05 08:40] VITALS: BMI 31.1
== END ==
PROVIDERS: PCP Family Medicine; Referring Provider Physician Assistant Medical; Visit Provider Physician Assistant Medical
DX: I49.3 Ventricular premature depolarization (principal)
CPT/HCPCS: 93225; 93226

== ENCOUNTER → 2021-02-07 07:56 | Outpatient (CLI) | payer BC, SELFPAY ==
[2021-01-31 15:07] VITALS: BMI 31.8
--- NOTE | 2021-02-07 07:59 | ECHOD_ITS ---
Reason For Study: Bicuspid AV Procedure This was a 2D Doppler, Color Flow transthoracic echocardiogram. Exam performed in department. Left Ventricle Normal LV size. Left ventricular systolic function is normal. The estimated ejection fraction is 65 %. Transmitral doppler flow suggestive of impaired relaxation of left ventricle. No regional wall motion abnormalities noted. Right Ventricle Normal RV size. Normal systolic function. Atria Normal left atrium. Normal right atrium. No doppler evidence for ASD. Mitral Valve There is no mitral annular calcification. Normal mitral valve. Trivial mitral valve insufficiency. Tricuspid Valve Normal tricuspid valve. Trivial tricuspid valve insufficiency. Unable to estimate RV systolic pressure due to insufficient tricuspid regurgitant envelope. Aortic Valve 2D echocardiographic images obtained appear c/w with a bicuspid aortic valve with mild focal thickening of a fused raphae. Mild (1+) aortic valve insufficiency. Pulmonic Valve The pulmonic valve is not well visualized. Great Vessels Mildly dilated aortic root. Pericardium/Pleural No pericardial effusion. MMode/2D Measurements & Calculations LVIDd: 4.1 cm IVSd: 1.1 cm LVOT diam: 2.2 cm LVIDs: 2.6 cm LVPWd: 0.91 cm LVOT area: 4.0 cm2 RVDd: 2.9 cm FS: 38.0 % Ao root diam: 4.2 cm LAV(MOD-bp): 42.3 ml LVAd ap4: 29.7 cm2 LAV(MOD-bp) Indexed: 20.8 ml/m2 LVLd ap4: 8.8 cm LAV(MOD-sp2): 37.7 ml EDV(MOD-sp4): 83.5 ml LAV(MOD-sp4): 45.1 ml EDV(sp4-el): 84.9 ml LVAs ap4: 15.3 cm2 LVLs ap4: 7.4 cm ESV(MOD-sp4): 27.3 ml ESV(sp4-el): 26.7 ml EF(MOD-sp4): 67.3 % EF(sp4-el): 68.6 % LVAd ap2: 29.0 cm2 SV(MOD-sp4): 56.2 ml SV(MOD-sp2): 54.4 ml LVLd ap2: 8.7 cm EDV(MOD-sp2): 82.9 ml EDV(sp2-el): 82.2 ml LVAs ap2: 15.6 cm2 LVLs ap2: 7.5 cm ESV(MOD-sp2): 28.5 ml ESV(sp2-el): 27.4 ml EF(MOD-sp2): 65.6 % SV(sp4-el): 58.2 ml LA dimension(2D): 3.4 cm LA A4 area: 17.4 cm2 RA A4 area: 14.4 cm2 Doppler Measurements & Calculations MV E max eddie: 76.4 cm/sec Lat Peak E' Eddie: 10.0 cm/sec Med Peak E' Eddie: 7.0 cm/sec MV A max eddie: 89.8 cm/sec E/E' lat: 7.7 E/E' med: 10.8 MV E/A: 0.85 Ao V2 max: 164.1 cm/sec AI max eddie: 348.3 cm/sec LV V1 max: 110.1 cm/sec Ao max P.8 mmHg AI max P.5 mmHg LV V1 max P.9 mmHg Ao V2 mean: 106.8 cm/sec AI dec slope: 164.6 cm/sec2 LV V1 mean P.7 mmHg Ao mean P.2 mmHg AI P1/2t: 619.8 msec LV V1 mean: 78.0 cm/sec Ao V2 VTI: 33.5 cm LV V1 VTI: 25.9 cm NORA(I,D): 3.1 cm2 NORA(V,D): 2.7 cm2 SV(LVOT): 102.9 ml PA V2 max: 81.4 cm/sec ECHO/Echo Complete Interpretation Summary Left ventricular systolic function is normal. The estimated ejection fraction is 65 %. Trivial mitral valve insufficiency. Trivial tricuspid valve insufficiency. 2D echocardiographic images obtained appear c/w with a bicuspid aortic valve wi th mild focal thickening of a fused raphae. Mild (1+) aortic valve insufficiency. Mildly dilated aortic root. Unable to estimate RV systolic pressure due to insufficient tricuspid regurgita nt envelope. Transmitral doppler flow suggestive of impaired relaxation of left ventricle Ordering Physician: Gabino Bob Referring Physician: Cindy García M.D. Performed By: Rachelle Pedraza RDCS
== END ==
PROVIDERS: PCP Family Medicine; Referring Provider Internal Medicine Cardiovascular Disease; Visit Provider Internal Medicine Cardiovascular Disease
DX: I77.810 Thoracic aortic ectasia (principal); Q23.1 Congenital insufficiency of aortic valve
CPT/HCPCS: 93306

== ENCOUNTER → 2022-02-11 | Outpatient (CLI) | payer BC, SELFPAY | END | disposition home or self-care (01) | PROVIDERS: PCP Family Medicine; Visit Provider Otolaryngology | DX: J02.9 Acute pharyngitis, unspecified (principal) | CPT/HCPCS: 87070; 87077 ==

== ENCOUNTER 2022-03-31 12:52 | Emergency (ER) | payer BC, SELFPAY ==
[2022-03-31 12:53] VITALS: BP 121/88; PULSE 95; RESP 18; TEMP 36.7; O2SAT 98; BMI 31.1
--- NOTE | 2022-03-31 13:44 | RAD_ITS ---
STUDY: X-RAY - LEFT FOOT CLINICAL: Female, 56 years old. Pain -- in wr TECHNIQUE: 3 view(s) of the foot. COMPARISON: None. FINDINGS: Normal talus, calcaneus, and tarsal bones. Normal visualized subtalar, talonavicular, calcaneocuboid, tarsal and tarsometatarsal articulations. Normal metatarsi. Normal metatarsophalangeal joint of the great toe. Normal tibial and fibular sesamoid bones. Normal interphalangeal joint of the great toe. Normal phalanges of the great toe. Normal second through fifth metatarsophalangeal joints. Normal interphalangeal joints and phalanges of the lesser toes. The soft tissue structures are unremarkable. RAD/Foot min 3 Views IMPRESSION: Normal x-ray examination of the foot. Electronically Signed: Aden Smallwood MD at 14:40 EDT ,
--- NOTE | 2022-03-31 14:12 | EDS_ITS ---
HPI History of Present Illness Chief Complaint: Lower Extremity Injury Informant: patient Onset/Context/Timing Onset: Weeks Context: Gradual Onset Current Severity: Moderate Maximum Severity: Moderate Narrative Narrative: Patient presents with pain across the top of her left foot for the past 2 to 3 weeks. 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 She states she came home from work about 3 weeks ago and had pain across the top of her foot. She does not remember injuring it or dropping anything on her foot. Pain is gradually worsened to the point where today it was quite significant. She has not seen her physician or had this evaluated prior to today. [facility] Medical History Bicuspid aortic valve Chest pain COVID-19 Dilated aortic root GERD (gastroesophageal reflux disease) Hemorrhoids PAC (premature atrial contraction) Home Medications metoprolol succinate 25 mg tablet,extended release 24 hr 25 mg PO DAILY #90 tabs 04/28/21 [Rx Last Taken Unknown] prednisone 20 mg tablet 40 mg PO DAILY #8 tabs 03/31/22 [Rx Last Taken Unknown] Allergy/AdvReac Type Severity Reaction Status Date / Time Penicillins [PCN] Allergy Rash Verified 03/31/22 12:54 prochlorperazine edisylate Allergy Other Verified 03/31/22 12:54 [From Compazine] prochlorperazine maleate Allergy Other Verified 03/31/22 12:54 [From Compazine] promethazine HCl Allergy Other Verified 03/31/22 12:54 [From Phenergan] Surgical History History of History of cholecystectomy Status post trigger finger release Social History Smoking Status: Never smoker alcohol intake: current details: occasional substance use type: does not use caffeine: Yes Type: coffee Number of servings: 2 ROS ROS ED Constitutional Constitutional ED: Denies chills or fever(s) Eyes Eyes: Denies change in vision or discharge from eye(s) ENT ENT ED: Denies discharge from eye(s), rhinorrhea or sore throat Cardiovascular Cardiovascular: Denies chest pain or palpitations Respiratory/Chest Respiratory/Chest: Denies cough or dyspnea Gastrointestinal Gastrointestinal: Denies abdominal pain, diarrhea, nausea or vomiting Genitourinary Genitourinary ED: Denies difficulty urinating or dysuria Musculoskeletal Musculoskeletal: Reports extremity pain; Denies back pain Integumentary Denies Abrasions or rash Neurologic Neurologic: Denies headache(s) or weakness Psychiatric Psychiatric: Denies anxiety or depression Allergic/Immunologic Allergic/Immunologic ED: Denies lip swelling or urticaria EXAM Physical Exam Const Vital Signs: 03/31/22 12:53 Temperature 98.1 F Temperature Source Temporal Pulse Rate 95 Respiratory Rate 18 Blood Pressure 121/88 H Blood Pressure Mean 99 Pulse Ox 98 Oxygen Delivery Method Room Air Positive well nourished and well developed General Appearance ED: well developed HEENT Reports normocephalic and head/scalp atraumatic Eyes PERRL and EOMs intact bilaterally Neck supple Chest Wall inspection of chest normal and palpation of chest normal Resp normal respiratory effort and clear to auscultation bilaterally Cardio regular rate and regular rhythm GI normal to inspection, nondistended, normoactive bowel sounds Palpation: soft Extremity normal to inspection Extremity Narrative: Reproducible tenderness across the dorsal aspect of the left foot. No si gnificant edema or overlying skin changes. Good range of motion. Neuro oriented x3 and no sensory deficits noted Sensorium / Orientation: alert Motor Exam: strength 5/5 throughout Psych mental status grossly normal Skin no rashes or lesions noted MDM MDM MDM Narrative Medical decision making narrative: Left foot x-rays obtained per nursing protocol. Treatment and Re-Evaluation Narrative: Left foot x-rays right hip rotation reveal no acute bony findings. Patient's exam is consistent with tendinitis. She will be treated with a burst of steroids. She will be referred to podiatry if not improving for orthotics. Discharge Plan Triage Chief Complaint: Lower Extremity Injury ED Provider: Rohini Bonilla Dx/Rx/DC Orders Clinical Impression: Tendinitis of left foot Instructions: ED Tendonitis Prescriptions: New prednisone 20 mg tablet 40 mg PO DAILY Qty: 8 0RF No Action metoprolol succinate 25 mg tablet extended release 24 hr 25 mg PO DAILY Qty: 90 3RF Primary Care Provider: Cindy García Referrals: Cindy García MD [Primary Care Provider] - Harsh Craft DPM [Med Staff - Active Staff] - 10-14 Days if not better Disposition Disposition: Home, Self Care
[2022-03-31 14:16] VITALS: RESP 16
[2022-03-31] MEDS: predniSONE 20 MG Tablet 60 MG PO (14:25)
== END 2022-03-31 14:44 | disposition home or self-care (01) ==
LOC: ED 14:27
PROVIDERS: Emergency Provider Emergency Medicine; PCP Family Medicine; Visit Provider Emergency Medicine
DX: M77.9 Enthesopathy, unspecified (principal); M79.672 Pain in left foot
CPT/HCPCS: 73630; 99283

== ENCOUNTER → 2022-04-01 | Outpatient (CLI) | payer BC, SELFPAY ==
--- NOTE | 2022-04-01 15:27 | RAD_ITS ---
STUDY: X-RAY CHEST REASON FOR EXAM: Female, 56 years old. PREPROCEDURAL RESP EXAM TECHNIQUE: XR Chest 2 Views COMPARISON: 5.5.20 FINDINGS: There is atherosclerotic calcification of the aortic arch with tortuosity. There are diffuse degenerative changes of the visualized thoracic spine. There is degenerative osteoarthritis of the bilateral shoulders. There is no demonstrated pleural abnormality. Normal size heart. Normal mediastinum and ayana. Normal visualized pulmonary arteries. There is no demonstrated abnormality of the visualized soft tissue structures of the upper abdomen. RAD/Chest PA and Lateral IMPRESSION: There are no acute findings. Electronically Signed: Al Saxena MD at 16:56 EDT ,
[2022-04-01 17:39] LABS: Absolute Lymphocyte Count 4.27 X10^3/uL (0.83-4.51); Absolute Neutrophil Count 5.3 X10^3/uL (2.0-7.7); Basophil# 0.04 X10^3/uL; Basophil% 0.4 % (0-1); Hematocrit 45.3 % (37-47); Hemoglobin 14.6 g/dL (12.0-15.0); Lymphocyte # 4.27 X10^3/ul (0.83-4.51); Lymphocyte % 41.7 % (19-41); Mean Corp Hgb Conc 32.2 g/dL (32-36); Mean Corpuscular Hgb 29.1 pg (27.0-32.0); Mean Corpuscular Volume 90.4 fL (81-99); Mean Platelet Vol. 9.7 fl (6.2-12.0); Monocyte% 4.9 % (0-10); NRBC Flagged by Analyzer 0 % (0-5); Neutrophil # 5.29 X10^3/uL (2.7-7.7); Neutrophil % 51.7 % (47-70); Platelet Count 375 K/mm3 (150-450); RBC Distribution Width CV 13.5 % (11.6-14.6); RBC Distribution Width SD 44.8 fl (35.1-43.9); Red Blood Count 5.01 M/mm3 (4.2-5.4); White Blood Count 10.2 K/mm3 (4.4-11.0)
[2022-04-01 18:00] LABS: BUN 13 mg/dL (7-18); Creatinine, Serum 0.75 mg/dL (0.55-1.02); Glucose 84 mg/dL (74-106)
[2022-04-01 18:01] LABS: Anion Gap 7 (5-15); BUN/Creat Ratio 17.4 RATIO (10-20); Calcium,Total 9.8 mg/dL (8.5-10.1); Chloride 108 mmol/L (98-107); EST Glomerular Filtration Rate 86 mL/min (>60); Est Glom Filt Rate - Afr Amer 104 mL/min (>60); Potassium 3.6 mmol/L (3.5-5.1); Sodium Level 140 mmol/L (136-145)
== END | disposition home or self-care (01) ==
LOC: MTLAB 15:25
PROVIDERS: PCP Family Medicine; Referring Provider Student in an Organized Health Care Education/Training Program; Visit Provider Student in an Organized Health Care Education/Training Program
DX: Z01.818 Encounter for other preprocedural examination (principal); Z01.811 Encounter for preprocedural respiratory examination
CPT/HCPCS: 36415; 71046; 80048; 85025

== ENCOUNTER 2022-09-30 08:00 | Outpatient (RCR) | payer BC, SELFPAY ==
--- NOTE | 2022-05-18 16:24 | HP.OTEVAL ---
Patient's Visit Information RICHARD ELAINE is a 56 year old F, referred to Occupational Therapy by Dr. Robson Arevalo, DO, with a diagnosis of left unilateral primary OA of CMC, subluxation of CMCJ. Date of Evaluation: 05/18/22 Occupational Therapist: Nalini Deleon, GRACIELA/Daisy, CHT - Subjective This 56 year old female was seen for OT eval with dx of left thumb OA- pt states she struggled with pain and limited use for about 5 years prior to having sx- pt states she had one cortisone shot with poor sucess. pt opted for left CMC arthroplasty sx. 2021. pt is right handed - pt arrives today for custom orthosis to support and protect reconstruction. pt 3 weeks and 6 days s/p from cmc arthroplasty and volar capsulodesis with percutaneous pinning. Pt states she is doing ok- some pain over the weekend but feeling ok today- pt reports family is assisting her with ADls and IADLs. - Pain left hand 3 Pain Intensity Range: 3, 7 - ROM Wrist: right 75/70 left 30/30 CMC: right 5* left NT MP: right 70* left NT IP: right 65* left 15* Radial Abduction: right 40* left NT Opposition: Kapandji opposition scale right 10 left NT ROM Comments: pt limited with ROM due to healing structures - Strength Cranberry Grower: right 85# left NT Lateral Pinch: right 12# left NT Tripod Pinch: right 4# left NT Strength Comments: will test strength a later date - Sensation Sensation Comments: reports tingling throughout left hand - Quick DASH-Disab of Arm,Shoulder& Hand Quick DASH Score: 88.6350 - Goals Goal:100% adherence to protocol: Yes Comment: Dr. Arevalo CMC arthroplasty with Volar capsulodesis of MPJ Goal:Daily scar massage when approriate: Yes Goal:ROM equal to unaffected hand: Yes Goal:Cranberry Grower/Pinch strength at least 75% of unaffected hand: Yes Goal:No pain with affected hand use: Yes Goal:Full use of affected hand in daily activities including: Yes - Rehabilitation General Assessment: Pt arrives 3 weeks and 6 days s/p from a left CMC arthroplasty with trapezial resection and ligament reconstruction and tendon interposition utilization of FCR autograft- with left 1st metacarpophalangeal joint volar plat capsulodesis with percutaneous pinning. pt arrives for custom orthosis following casting to allow for protection and support while reconstruction is healing. Pt demo need for skilled OTR/L, CHT services 1x week for 12 weeks.to rehab pt to maximal rehab potential - pt has $60 co-pay each visit so she is requesting every other week-therapist will advise pt in HEP but request her to attend weekly if concerns arise- pt agree to POC. Today therapist selin. custom orthosis (thumb spica) to provide protection and support of healing structures. therapist ed. pt in use and precautions pt demo understanding- therapist also ed. pt in wrist short arch motion -finger ROM- and IP ROM. pt to use orthosis at all times off for ex and cleaning only- therapist advise not thumb ext. pt demo understanding and agree to POC. Rehabilitation Potential: Excellent - Anticipated Interventions A/AAROM/PROM, Strengthening, Edema Control, Scar Care, Triggerpoint Release, Modalities, Orthoses, Joint Protection/Energy Conservation, Ergonomic Education, Fine Motor Coord/Alvin, ADL Training, Education re assistive Equipment, Education re Diagnosis, Home Program - Visit Plan Frequency: Every Other Week Duration: 2 Months General Plan: Dr. Arevalo protocol for MCP capsulodesis with carpometacarpal arthroplasty. s/p week 4 begin wrist ROM exercise. Fabricate thumb spica orthosis- keep IPJ free. Position wrist in 15* extension. Maintain Neutral radiaoulnar deviation. Place thumb in comfortable position of about 40*-50* palmar abduction keeping fingers free. -encourage finger ROM. Week 6 remove pin. Re-form orthosis so that MCPJ is held in 20* to 30* flexion. Begin motion of MCP joint with orthosis off but with exercise off but with exercise orthosis (finger of 8 or oval 8 orthosis) in place IPJ should be allowed full motion and MCPJ should be allowed full flexion. Avoid stretching the volar plat or stretching the thumb into abduction at the web space. Week 8. wean MCPJ from thumb spica orthosis. Fabricate hand-based orthosis to hold MCPJ in 20* flexion (or use orthosis that was employed as exercise orthosis for daily activities) choice depends on activity level of pt. Week 10. Begin light isometric strengthening exercises 2x/day within pain tolerance. Practice gripping abound objects of various circumferences in various positions with small orthosis for MCPJ in place. Week 12 use hand-based orthosis only for high-demand activities. Week 16 d/c use of orthosis if MCPJ is stable at 0* or greater in resting position (NO Hyperextension) TEXT: Thank you for the opportunity to evaluate your patient. For Medicare and Medicare HMO plans, please review the plan of care and approve it. It will need to be FAXED BACK to us at [phone] for Medicare purposes. Please let me know if there are questions or concerns regarding this plan of care. Physician Signature: Date:
--- NOTE | 2022-08-12 08:47 | HP.OTREVAL ---
Dr. Robson Arevalo, DO, It has been my pleasure to treat RICHARD ELAINE over the last 3 visits for left unilateral primary OA of CMC, subluxation of CMCJ. Please see the progress note below for an update on the occupational therapy plan of care! Subjective: pt arrives 16 weeks and 1 day s/p from left CMC arthroplasty- pt returns to therapy after 2 months of performing her HEP. pt did see yesterday and states he was happy-. 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 pt is not wearing splints. pt states no pain at this time- pt states she noticed it about 3 weeks ago she has on pain. pt is performing ADLs and IADls at DANGELO level - pt would like to see more lime burner and pinch strength as lifting cup of coffee is difficult. Objective/Function: left wrist 65/60. left CMC 10*. left MP 50*. left IP 60. pt demo opposition to base of LF. left 45# right is 80#. left lateral pinch 4# right 14#. left tripod pinch 2# right 16#. pt doing well with her HEP- therapist ed. pt on thumb stabilization ex. along with wrist and UE PRE to her red. advised with her heavy work tasks at [employer] lifting 40-50# items a orthosis for 1st 6-9 months with heavy lifting only- pt agreeable - will selin. at next apt- pt continues to be on light duty. Plan Frequency: see pt in 2 weeks Plan: will return in 2 weeks for further strength of UB and thumb stabilization ex. / custom orthosis selin. for heavy work lifting ( 35-50#) to protect reconstruction. Advised would be beneficial for next 6-9 months depending on what she is lifting at work. will transition to HEP after this apt as pt has $60. co-pay. 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/Pinch strength at least 75% of unaffected hand: Yes Goal:No pain with affected hand use: Yes Goal:Full use of affected hand in daily activities including: Yes Anticipated Interventions Anticipated Interventions: A/AAROM/PROM, Strengthening, Edema Control, Scar Care, Triggerpoint Release, Modalities, Orthoses, Joint Protection/Energy Conservation, Ergonomic Education, Fine Motor Coord/Alvin, ADL Training, Education re assistive Equipment, Education re Diagnosis, Home Program Please do not hesitate to contact me at [phone] by phone or if you have questions or concerns regarding this new plan of care! Sincerely, Nalini Deleon, OTR/L, CHT
--- NOTE | 2022-09-30 14:26 | HP.OTDCSUM ---
It has been my pleasure to treat RICHARD ELAINE under orders from Dr. Robson Arevalo, DO, for the diagnosis of left unilateral primary OA of CMC, subluxation of CMCJ for a total of 4 visit(s). Please see the following information for a summary of their discharge status. % Improvement: 85 Objective/Function: left wrist 65/60. left CMC 10*. left MP 50*. left IP 60. pt demo opposition to base of LF. left 50# right is 60#. left lateral pinch 4# right 14#. left tripod pinch 2# right 16#. pt doing well with her HEP- therapist ed. pt on thumb stabilization ex. along with wrist and UE PRE to her red. advised with her heavy work tasks at [employer] lifting 40-50# items a orthosis for 1st 6-9 months with heavy lifting only- pt agreeable. and wrist free cmc supportive orthosis was made. 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 pt agrees with POC and D.C. If there are questions or concerns regarding this patient's occupational therapy, please fell free to call me at [phone]. Thank you for the referral of this patient. Sincerely, Nalini Deleon, OTR/L, CHT
== END 2022-09-30 19:00 | disposition home or self-care (01) ==
LOC: OT 08:00
PROVIDERS: PCP Family Medicine; Referring Provider Student in an Organized Health Care Education/Training Program; Visit Provider Student in an Organized Health Care Education/Training Program
DX: S63.042D Subluxation of carpometacarpal joint of left thumb, subsequent encounter (principal); M18.12 Unilateral primary osteoarthritis of first carpometacarpal joint, left hand; M25.342 Other instability, left hand
CPT/HCPCS: 97110; 97140; 97166; 97530

== ENCOUNTER 2022-10-22 20:52 | Emergency (ER) | payer BC, SELFPAY ==
[2022-10-22 20:53] VITALS: BP 130/88; PULSE 86; RESP 19; TEMP 36.9; O2SAT 98; BMI 29.0
--- NOTE | 2022-10-22 21:13 | EDS_ITS ---
HPI HPI - GI History of Present Illness Chief Complaint: Abd Pain Detail of Chief Complaint: Abdominal pain Informant: patient Narrative Narrative: Patient was with a nominal pain to the right upper quadrant that started initially half an hour ago. Patient states that she was watching television and drinking a hard cider when she had sudden onset of severe excruciating pain underneath the right ribs that lasted about 3 to 5 minutes. The pain then completely resolved. Pain was gone for about 20 minutes and then recurred again and was sharp and excruciating. Patient states that it felt like her gallbladder pain which she had removed more than 10 years ago. Patient denies any blood in her stool or black tarry stool. She denies recent illness. She has no history of kidney stones. She denies urinary symptoms. Currently she is pain-free. [facility] Medical History Bicuspid aortic valve Chest pain COVID-19 Dilated aortic root GERD (gastroesophageal reflux disease) Hemorrhoids PAC (premature atrial contraction) Home Medications prednisone 20 mg tablet 40 mg PO DAILY #8 tabs 03/31/22 [Rx Last Taken Unknown] metoprolol succinate 25 mg tablet,extended release 24 hr 25 mg PO DAILY #90 tabs 08/07/22 [Rx Last Taken Unknown] Allergy/AdvReac Type Severity Reaction Status Date / Time Penicillins [PCN] Allergy Rash Verified 10/22/22 20:54 prochlorperazine edisylate Allergy Other Verified 10/22/22 20:54 [From Compazine] prochlorperazine maleate Allergy Other Verified 10/22/22 20:54 [From Compazine] promethazine HCl Allergy Other Verified 10/22/22 20:54 [From Phenergan] Surgical History History of History of cholecystectomy Status post trigger finger release Social History Smoking Status: Never smoker alcohol intake: current details: occasional substance use type: does not use caffeine: Yes Type: coffee Number of servings: 2 ROS ROS ED Review of Systems ROS Unobtainable: other Constitutional Constitutional ED: Reports lethargy; Denies chills, fever(s), sweats or weight loss Eyes Eyes: Denies blurry vision, change in vision or diplopia ENT ENT ED: Denies rhinorrhea or sore throat Cardiovascular Cardiovascular: Denies chest pain, orthopnea or racing heartbeat Respiratory/Chest Respiratory/Chest: Denies cough, dyspnea, dyspnea on exertion, orthopnea or sputum Gastrointestinal Gastrointestinal: Reports abdominal pain; Denies diarrhea, nausea or vomiting Genitourinary Genitourinary ED: Denies dysuria, hematuria or urinary frequency Musculoskeletal Musculoskeletal: Denies arthralgias, back pain, myalgias or neck pain Integumentary Denies abscess, Abrasions or rash Neurologic Neurologic: Denies headache(s) or weakness Psychiatric Psychiatric: Denies anxiety, depression or suicidal thoughts Endocrine Endocrinology: Denies polydipsia, polyphagia or polyuria Hematologic/Lymphatic Hematologic/Lymphatic: Denies easy bleeding, easy bruising or lymphadenopathy Allergic/Immunologic Allergic/Immunologic ED: Denies mouth swelling, tongue swelling or urticaria EXAM Physical Exam Const Vital Signs: 10/22/22 20:53 Temperature 98.5 F Temperature Source Temporal Pulse Rate 86 Respiratory Rate 19 H Blood Pressure 130/88 H Blood Pressure Mean 102 Pulse Ox 98 Oxygen Delivery Method Room Air Positive well nourished and well developed General Appearance ED: well developed and NAD HEENT Reports TM's clear and moist mucous membranes normocephalic and atraumatic; Negative for trauma or tenderness Tympanic Membrane ED: Yes TM's clear Eyes PERRL and EOMs intact bilaterally General Eye ED: Negative for pale conjunctiva or scleral icterus Neck no lymphadenopathy, supple and no JVD General: Negative for tenderness Chest Wall inspection of chest normal and palpation of chest normal Chest: Negative for tenderness Resp normal respiratory effort and clear to auscultation bilaterally Effort and Inspection: Negative for respiratory distress or pain with movement Auscultation: Negative for rhonchi, wheezes or diminished lung sounds Cardio regular rate, regular rhythm, S1 normal heart sound, S2 normal heart sound and no murmurs Peripheral Pulses: pulses 2+ throughout GI normal to inspection, nondistended, normoactive bowel sounds, soft to palpation, non-distended and no masses GI Narrative: Tenderness to palpation over the right upper quadrant with some mild guarding. There is no rebound, rigidity, or. Signs. No mass palpated. Back/Spine no CVA tenderness and no thoracic nor lumbar tenderness Extremity normal to inspection General Extremety ED: Negative for edema General Extremity: Negative for edema Neuro oriented x3, CN's II-XII intact bilaterally, no sensory deficits noted and gait normal Sensorium / Orientation: awake, alert, oriented to person, oriented to place and oriented to time Motor Exam: strength 5/5 throughout and strength abnormal Psych mental status grossly normal Skin no rashes or lesions noted and no wounds MDM MDM MDM Narrative Medical decision making narrative: Patient presents with intermittent right upper quadrant abdominal pain sudden onset. Patient has had her gallbladder removed. In the differential was kidney stone versus bowel obstruction versus perforated peptic ulcer or perforated bowel. Currently she is pain-free. IV line established. She now only thing for pain. CBC with differential obtained showed an elevated white count of 12.4 with a hemoglobin of 15 and hematocrit of 44 and platelet count of 334. Chemistries unremarkable. LFTs normal other than a slightly elevated AST of 76 however her alkaline phosphatase was normal and lipase normal at 54. Urinalysis normal. Patient had a CT scan of the abdomen pelvis with IV contrast that showed a benign cavernous hemangioma within the liver and a minimal hiatal hernia otherwise nothing acute. On reevaluation the patient is doing well and she is not having any abdominal pain. Patient will be discharged to home. She is advised to return if worsening pain, fever, vomiting, or condition worsening way. Lab Data Attestation: I reviewed the patient's lab results. Labs: Laboratory Results - last 24 hr 10/22/22 10/22/22 10/22/22 21:05 21:05 21:05 WBC 12.4 H RBC 5.10 Hgb 15.0 Hct 44.2 MCV 86.7 MCH 29.4 MCHC 33.9 RDW Std Deviation 42.0 RDW Coeff of Anjana 13.4 Plt Count 334 MPV 8.9 Immature Gran % (Auto) 0.200 Neut % (Auto) 43.1 L Lymph % (Auto) 46.[address] [facility] % (Auto) 7.8 Eos % (Auto) 1.8 Baso % (Auto) 0.3 Absolute Neuts (auto) 5.4 Absolute Lymphs (auto) 5.81 H Nucleated RBC % 0 Differential Comment SCANNED Sodium 138 Potassium 5.0 Chloride 108 H Carbon Dioxide 21.0 Anion Gap 9 BUN 13 Creatinine 0.82 Estim Creat Clear Calc 74.50 Est GFR (MDRD) Af Amer 93 Est GFR (MDRD) Non-Af 77 BUN/Creatinine Ratio 15.9 Glucose 76 Lactic Acid Calcium 9.4 Total Bilirubin 0.80 AST 76 H ALT 45 Alkaline Phosphatase 85 Total Protein 8.2 Albumin 3.7 Globulin 4.5 H Albumin/Globulin Ratio 0.8 L Lipase 54 Urine Color Yellow Urine Clarity Clear Urine pH 6.0 Ur Specific [place] 1.010 Urine Protein Negative Urine Glucose (UA) Normal Urine Ketones Negative Urine Occult Blood Negative Urine Nitrite Negative Urine Bilirubin Negative Urine Urobilinogen Normal Ur Leukocyte Esterase Negative Urine RBC 0 SEEN Urine WBC 0 SEEN Ur Squamous Epith Cells 0 SEEN Urine Bacteria 0 SEEN Urine Mucus 0 SEEN 10/22/22 21:25 WBC RBC Hgb Hct MCV MCH MCHC RDW Std Deviation RDW Coeff of Anjana Plt Count MPV Immature Gran % (Auto) Neut % (Auto) Lymph % (Auto) [facility] % (Auto) Eos % (Auto) Baso % (Auto) Absolute Neuts (auto) Absolute Lymphs (auto) Nucleated RBC % Differential Comment Sodium Potassium Chloride Carbon Dioxide Anion Gap BUN Creatinine Estim Creat Clear Calc Est GFR (MDRD) Af Amer Est GFR (MDRD) Non-Af BUN/Creatinine Ratio Glucose Lactic Acid 2.3 H* Calcium Total Bilirubin AST ALT Alkaline Phosphatase Total Protein Albumin Globulin Albumin/Globulin Ratio Lipase Urine Color Urine Clarity Urine pH Ur Specific [place] Urine Protein Urine Glucose (UA) Urine Ketones Urine Occult Blood Urine Nitrite Urine Bilirubin Urine Urobilinogen Ur Leukocyte Esterase Urine RBC Urine WBC Ur Squamous Epith Cells Urine Bacteria Urine Mucus Radiography Diagnostic Testing: Clinical Impression(s) from Imaging Studies Abdomen/Pelvis CT 10/22/22 21:13 IMPRESSION: Benign cavernous hemangiomas within the liver. Minimal hiatal hernia. No acute intra-abdominal abnormality. Electronically Signed: Mack Lynn MD at 23:14 EDT , Discharge Plan Triage Chief Complaint: Abd Pain ED Provider: Destinee Houston Dx/Rx/DC Orders Clinical Impression: Abdominal pain Instructions: ED Abdominal Pain Unkn Cause Fem Prescriptions: No Action prednisone 20 mg tablet 40 mg PO DAILY Qty: 8 0RF metoprolol succinate 25 mg tablet extended release 24 hr 25 mg PO DAILY Qty: 90 3RF Primary Care Provider: Cindy García Referrals: Cindy García MD [Primary Care Provider] - 3-5 Days Disposition Disposition: Home, Self Care
--- NOTE | 2022-10-22 21:13 | CT_ITS ---
EXAM: CT ABDOMEN AND PELVIS WITH INTRAVENOUS CONTRAST CLINICAL INDICATION: abdominal pain TECHNIQUE: Helically acquired images were obtained of the abdomen and pelvis with intravenous contrast. This CT exam was performed using one or more of the following dose reduction techniques: automated exposure control, adjustment of the mA and/or kV according to patient size, and/or use of iterative reconstruction technique. Coronal and sagittal reformatted images were created and reviewed. CONTRAST: IV 100mL [id number] RADIATION DOSE: Total DLP: 1050.93 mGy-cm. COMPARISON: Abdominal ultrasound report of 09/30/2011. Chest CT of 12/19/2019. FINDINGS: LOWER THORAX: Stable 5 mm ovoid, circumscribed nodule laterally within the left lower lobe, consistent with a benign noncalcified granuloma which requires no follow-up. No acute basilar pulmonary infiltrates or pleural effusions. No coronary artery calcification is visualized. No significant pericardial effusion. A minimal hiatal hernia is noted. ABDOMEN: LIVER: There is a stable benign cavernous hemangioma within the posterior aspect of the right hepatic lobe superiorly. Within the more inferior right hepatic lobe is a 1.8 cm rounded homogeneously enhancing nodule, consistent with flash filling of a cavernous hemangioma. The portal veins enhance normally. Right hepatic lobe is elongated measuring 19.4 cm in cephalocaudal dimension. GALLBLADDER AND BILE DUCTS: Suggestion of a markedly contracted gallbladder. No gallstones or biliary ductal dilatation. PANCREAS: Unremarkable. No focal cystic or solid mass. SPLEEN: Unremarkable. Normal size without focal cystic or solid mass. ADRENALS: Unremarkable. No nodules. KIDNEYS AND URETERS: Unremarkable. Normal renal size and position. No hydronephrosis. No renal or obstructing ureteral stones. STOMACH AND BOWEL: The gastric wall is not thickened. No periduodenal inflammatory changes or distended small bowel loops. No findings of small bowel obstruction, diverticulitis or colitis. PELVIS: APPENDIX: Normal. No evidence of acute appendicitis. BLADDER: Unremarkable. REPRODUCTIVE: Unremarkable as visualized. No adnexal mass. ABDOMEN and PELVIS: INTRAPERITONEAL SPACE: Unremarkable. No ascites or other fluid collection. No free air. BONES/JOINTS: Degenerative disc disease noted at the L5/S1 level with disc space narrowing, vacuum disc phenomenon, endplate sclerosis and marginal osteophytes. Lower lumbar facet arthritis also noted. No acute osseous abnormality. No suspicious lytic or blastic abnormality. SOFT TISSUES: Unremarkable. No discrete abdominal or pelvic wall hernia. VASCULATURE: Normal caliber abdominal aorta. SMA and MASSIEL enhance normally. LYMPH NODES: Unremarkable. No enlarged lymph nodes. CT/Abdomen/Pelvis W IV Cont ONLY IMPRESSION: Benign cavernous hemangiomas within the liver. Minimal hiatal hernia. No acute intra-abdominal abnormality. Electronically Signed: Mack Lynn MD at 23:14 EDT ,
[2022-10-22] MEDS: 0.9% Normal Saline 1,000 ML 125 ML IV (21:22)
[2022-10-22 21:23] LABS: Bacteria 0 SEEN /hpf (None Seen); Mucous, Urine 0 SEEN /hpf (<or=2+); Red Blood Cells-Urine 0 SEEN /hpf (0-5); Squamous Epithelial Cells - UA 0 SEEN /hpf (5-10); White Blood Cells 0 SEEN /hpf (0-5)
[2022-10-22 21:28] LABS: Absolute Lymphocyte Count 5.81 X10^3/uL (0.83-4.51); Absolute Neutrophil Count 5.4 X10^3/uL (2.0-7.7); Basophil# 0.04 X10^3/uL; Basophil% 0.3 % (0-1); Eosinophil# 0.22 X10^3/uL; Eosinophils% 1.8 % (0-5); Hematocrit 44.2 % (37-47); Lymphocyte # 5.81 X10^3/ul (0.83-4.51); Lymphocyte % 46.8 % (19-41); Mean Corp Hgb Conc 33.9 g/dL (32-36); Mean Corpuscular Hgb 29.4 pg (27.0-32.0); Mean Corpuscular Volume 86.7 fL (81-99); Mean Platelet Vol. 8.9 fl (6.2-12.0); Monocyte# 0.97 X10^3/uL; Monocyte% 7.8 % (0-10); NRBC Flagged by Analyzer 0 % (0-5); Neutrophil # 5.35 X10^3/uL (2.7-7.7); Neutrophil % 43.1 % (47-70); POSITIVE DIFFERENTIAL YES; POSITIVE MORPHOLOGY YES; Platelet Count 334 K/mm3 (150-450); RBC Distribution Width CV 13.4 % (11.6-14.6); White Blood Count 12.4 K/mm3 (4.4-11.0)
[2022-10-22 21:29] LABS: Differential Indicated SCAN CRITERIA MET
[2022-10-22 21:33] LABS: Color, Urine Yellow (Yellow); Glucose, Dipstick Normal (Normal); Ketone-Dipstick Negative (Negative); Leukocyte Esterase-Dipstick Negative /ul (Negative); Nitrite-Dipstick Negative (Negative); Occult Blood-Urine Negative /ul (Negative); Protein-Dipstick Negative (Negative); Urine Bilirubin Dipstick Negative (Negative); Urine Clarity Clear (Clear); Urine Urobilinogen Normal (Normal)
[2022-10-22 22:11] LABS: Differential Comment SCANNED
[2022-10-22 22:19] LABS: Lactic Acid 2.3 mmol/L (0.4-1.9)
[2022-10-22 22:19] LABS: ALB/GLOB Ratio 0.8 RATIO (0.9-2.4); AST(SGOT) 76 U/L (15-37); Alanine Aminotransfer ALT/SGPT 45 U/L (13-56); Albumin, Serum 3.7 g/dL (3.2-5.0); Alkaline Phosphatase 85 U/L (45-117); Anion Gap 9 (5-15); BUN 13 mg/dL (7-18); BUN/Creat Ratio 15.9 RATIO (10-20); Calcium,Total 9.4 mg/dL (8.5-10.1); Chloride 108 mmol/L (98-107); Creatinine, Serum 0.82 mg/dL (0.55-1.02); EST Glomerular Filtration Rate 77 mL/min (>60); Est Glom Filt Rate - Afr Amer 93 mL/min (>60); Globulin 4.5 g/dL (2.2-4.2); Glucose 76 mg/dL (74-106); Lipase 54 U/L (13-75); Protein, Total 8.2 g/dL (6.4-8.2); Sodium Level 138 mmol/L (136-145)
[2022-10-23 01:33] LABS: Reflex Lactate? Y
== END 2022-10-22 23:28 | disposition home or self-care (01) ==
PROVIDERS: Emergency Provider Emergency Medicine; PCP Family Medicine; Visit Provider Emergency Medicine
DX: R10.9 Unspecified abdominal pain (principal); K44.9 Diaphragmatic hernia without obstruction or gangrene; Z90.49 Acquired absence of other specified parts of digestive tract; D18.00 Hemangioma unspecified site
CPT/HCPCS: 74177; 80053; 81001; 83605; 83690; 85025; 96360; 96361; 99283; J7030; Q9967; A4216

== ENCOUNTER → 2023-03-12 | Outpatient (CLI) | payer BC, SELFPAY ==
[2023-03-17 18:07] LABS: HPV APTIMA, High Risk Negative (Negative)
[2023-03-17 18:20] LABS: HPV Reflexed? YES, CHARGE PATIENT
== END | disposition home or self-care (01) ==
PROVIDERS: PCP Family Medicine; Visit Provider Family Medicine
DX: Z12.4 Encounter for screening for malignant neoplasm of cervix (principal)
CPT/HCPCS: 87624; 88175; G0145

== ENCOUNTER → 2023-03-23 | Outpatient (CLI) | payer BC, SELFPAY ==
--- NOTE | 2023-03-23 08:33 | BI_ITS ---
MAMMOGRAPHY - BILATERAL SCREENING REASON FOR EXAM: Female, 57 years old. Routine annual screening examination. PERTINENT HISTORY: Non-contributory. TECHNIQUE: Digital bilateral breast shirley (3D mammographic acquisition) in the CC and MLO projections. 2-D mediolateral oblique (MLO) and craniocaudad (CC) views of both breasts were obtained. CAD: Full Field Digital Mammography with Computer Added Detection was performed. COMPARISON: Comparison is made with prior study March 30, 2017. FINDINGS: Breast Composition: The breasts are heterogeneously dense, which may obscure small masses. There are no dominant masses or suspicious calcifications. No other significant abnormalities are identified. There has been no significant change since the prior study. BI/SCRN MAMM (CAD)W/SHIRLEY BILAT IMPRESSION: Stable bilateral screening mammogram. Yearly follow-up mammogram recommended. (A) ASSESSMENT CATEGORY: BIRADS Category 1: Negative. A letter regarding these results will be sent to the patient by the facility within 30 days. Approximately 10% of breast cancers are not detected by mammography. A normal mammogram should not delay biopsy of a clinically suspicious abnormality. [id number] Electronically Signed: Aden Smallwood MD at 9:28 EDT ,
== END | disposition home or self-care (01) ==
LOC: OPBI 08:29
PROVIDERS: PCP Family Medicine; Referring Provider Family Medicine; Visit Provider Family Medicine
DX: Z12.31 Encounter for screening mammogram for malignant neoplasm of breast (principal)
CPT/HCPCS: 77063; 77067